=== PATIENT | male | born 1985 | race Caucasian/White ===

== ENCOUNTER 2016-11-29 18:34 | Emergency (ER) | payer SELFPAY ==
[2016-11-29 19:31] LABS: BASOPHIL % 0.3 % (0-2); PLATELET COUNT 196 x10^3mcL (130-400); RED CELL DISTRIBUTION WIDTH 13.2 % (11.5-14.5)
[2016-11-29 19:46] LABS: CALCIUM 9.9 mg/dL (8.5-10.1); CARBON DIOXIDE 31.2 mmol/L (21-32); CHLORIDE SERUM 99 mmol/L (98-107); GFR1 > 60 mL/min; GLUCOSE SERUM 106 mg/dL (74-106); SODIUM SERUM 141 mmol/L (136-145)
[2016-11-29 19:51] LABS: ALBUMIN 4.3 g/dL (3.4-5.0); ALKALINE PHOSPHATASE 65 U/L (46-116); ALT/SGPT 102 U/L (16-63); AST/SGOT 85 U/L (15-37); BILIRUBIN TOTAL 0.82 mg/dL (0.20-1.00); LIPASE 150 IU/L (73-393)
[2016-11-29 21:10] VITALS: BP 164/102
== END 2016-11-29 21:10 | disposition home or self-care (01) ==
LOC: ED 18:34
PROVIDERS: Emergency Medicine
DX: K22.6 Gastro-esophageal laceration-hemorrhage syndrome (principal); K29.20 Alcoholic gastritis without bleeding; R03.0 Elevated blood-pressure reading, without diagnosis of hypertension; F10.20 Alcohol dependence, uncomplicated
CPT/HCPCS: C9113; J2405; J7030; Q0092

== ENCOUNTER 2017-06-26 11:59 | Emergency (ER) | payer SELFPAY ==
[~2017-06-26] VITALS: Ht 185.4 cm; Wt 99.8 kg
[2017-06-26 12:15] VITALS: Ht 185.4 cm; Wt 99.8 kg
[2017-06-26 13:59] LABS: BASOPHIL % 0.5 % (0-2); PLATELET COUNT 163 x10^3mcL (130-400); RED CELL DISTRIBUTION WIDTH 12.7 % (11.5-14.5)
[2017-06-26 14:12] LABS: CALCIUM 9.7 mg/dL (8.5-10.1); CARBON DIOXIDE 25.8 mmol/L (21-32); CHLORIDE SERUM 101 mmol/L (98-107); CREATININE SERUM 0.9 mg/dL (0.7-1.3); GFR1 > 60 mL/min; GLUCOSE SERUM 99 mg/dL (74-106); POTASSIUM SERUM 4.5 mmol/L (3.5-5.1); SODIUM SERUM 137 mmol/L (136-145)
[2017-06-26 14:16] LABS: ALBUMIN 4.6 g/dL (3.4-5.0); ALKALINE PHOSPHATASE 69 U/L (46-116); ALT/SGPT 62 U/L (16-63); AST/SGOT 45 U/L (15-37); BILIRUBIN TOTAL 1.05 mg/dL (0.20-1.00); MAGNESIUM 2.3 mg/dL (1.8-2.4); TOTAL PROTEIN, SERUM 8.1 g/dL (6.4-8.2)
[2017-06-26 17:02] VITALS: BP 152/106
== END 2017-06-26 17:02 | disposition home or self-care (01) ==
LOC: ED 11:59
PROVIDERS: Emergency Medicine
DX: F10.239 Alcohol dependence with withdrawal, unspecified (principal); I10 Essential (primary) hypertension
CPT/HCPCS: 36415; G0480; J3411; J3475; J3490; J7030

== ENCOUNTER 2017-12-27 21:50 | Emergency (ER) | payer MEDICAID ==
[~2017-12-27] VITALS: Ht 185.4 cm; Wt 103.9 kg
[2017-12-27 21:57] VITALS: Ht 185.4 cm; Wt 103.9 kg
[2017-12-27 22:45] LABS: BASOPHIL % 0.3 % (0-2); PLATELET COUNT 182 x10^3mcL (130-400); RED CELL DISTRIBUTION WIDTH 13.5 % (11.5-14.5)
[2017-12-27 22:50] LABS: CALCIUM 9.1 mg/dL (8.5-10.1); CARBON DIOXIDE 24.2 mmol/L (21-32); CHLORIDE SERUM 104 mmol/L (98-107); CREATININE SERUM 0.8 mg/dL (0.7-1.3); GFR1 > 60 mL/min; GLUCOSE SERUM 110 mg/dL (74-106); POTASSIUM SERUM 3.9 mmol/L (3.5-5.1); SODIUM SERUM 140 mmol/L (136-145)
[2017-12-27 23:06] LABS: FREE T4 0.96 ng/dL (0.76-1.46)
[2017-12-27 23:38] LABS: AMPHETAMINE QUAL UR NONE DETECTED (See below)
[2017-12-28 00:01] VITALS: BP 157/103
== END 2017-12-28 00:01 | disposition home or self-care (01) ==
LOC: ED 21:50
PROVIDERS: Emergency Medicine
DX: F41.0 Panic disorder [episodic paroxysmal anxiety] (principal)
CPT/HCPCS: 84439; J2060; J7030; Q0092

== ENCOUNTER 2018-02-21 19:21 | Emergency (ER) | payer SELFPAY ==
[~2018-02-21] VITALS: Ht 185.4 cm; Wt 96.3 kg
[2018-02-21 20:49] LABS: PLATELET COUNT 218 x10^3mcL (130-400); RED CELL DISTRIBUTION WIDTH 12.7 % (11.5-14.5)
[2018-02-21 20:50] LABS: BASOPHIL % 0 % (0-2)
[2018-02-21 21:05] LABS: CALCIUM 9.7 mg/dL (8.5-10.1); CARBON DIOXIDE 24.7 mmol/L (21-32); CHLORIDE SERUM 105 mmol/L (98-107); CREATININE SERUM 1.1 mg/dL (0.7-1.3); GFR1 > 60 mL/min; GLUCOSE SERUM 141 mg/dL (74-106); POTASSIUM SERUM 4.5 mmol/L (3.5-5.1); SODIUM SERUM 144 mmol/L (136-145)
[2018-02-21 21:10] LABS: ALBUMIN 4.2 g/dL (3.4-5.0); ALKALINE PHOSPHATASE 95 U/L (46-116); ALT/SGPT 41 U/L (16-63); AST/SGOT 37 U/L (15-37); BILIRUBIN TOTAL 0.8 mg/dL (0.20-1.00); TOTAL PROTEIN, SERUM 7.5 g/dL (6.4-8.2)
[2018-02-21 23:00] VITALS: BP 139/100
== END 2018-02-21 23:00 | disposition home or self-care (01) ==
LOC: ED 19:21
PROVIDERS: Emergency Medicine
DX: F41.9 Anxiety disorder, unspecified (principal); E86.0 Dehydration; Z98.890 Other specified postprocedural states
CPT/HCPCS: J1885; J2405; J7030; Q0092

== ENCOUNTER 2019-06-10 21:57 | Emergency (ER) | payer SELFPAY ==
[~2019-06-10] VITALS: Ht 180.3 cm; Wt 83.9 kg
[2019-06-10 22:03] VITALS: Ht 180.3 cm; Wt 83.9 kg
[2019-06-10 23:32] LABS: BASOPHIL % 0.2 % (0-2); PLATELET COUNT 234 x10^3mcL (130-400)
[2019-06-10 23:33] LABS: CALCIUM 8.1 mg/dL (8.5-10.1); CARBON DIOXIDE 27.9 mmol/L (21-32); CHLORIDE SERUM 109 mmol/L (98-107); GFR1 > 60 mL/min; GLUCOSE SERUM 170 mg/dL (74-106); POTASSIUM SERUM 3.3 mmol/L (3.5-5.1); SODIUM SERUM 144 mmol/L (136-145)
[2019-06-10 23:39] LABS: ALBUMIN 3.6 g/dL (3.4-5.0); ALKALINE PHOSPHATASE 90 U/L (46-116); ALT/SGPT 37 U/L (16-63); AST/SGOT 32 U/L (15-37); TOTAL PROTEIN, SERUM 6.7 g/dL (6.4-8.2)
[2019-06-11 07:45] VITALS: BP 132/76
[2019-06-11 10:40] LABS: AMPHETAMINE QUAL UR NONE DETECTED (See below)
== END 2019-06-11 13:35 | disposition home or self-care (01) ==
LOC: ED 21:57
PROVIDERS: Emergency Medicine
DX: S51.811A Laceration without foreign body of right forearm, initial encounter (principal); F10.129 Alcohol abuse with intoxication, unspecified; Z98.890 Other specified postprocedural states; X78.1XXA Intentional self-harm by knife, initial encounter; Y93.89 Activity, other specified; Y92.89 Other specified places as the place of occurrence of the external cause; Y99.8 Other external cause status; Y90.8 Blood alcohol level of 240 mg/100 ml or more
CPT/HCPCS: 36415; G0480; J2001; J2060; J7030

== ENCOUNTER 2020-03-26 18:48 | Emergency (ER) | payer OTHER ==
[~2020-03-26] VITALS: Ht 185.4 cm; Wt 90.7 kg
[2020-03-26 19:11] VITALS: Ht 185.4 cm; Wt 90.7 kg
[2020-03-26 21:01] VITALS: BP 144/107
== END 2020-03-26 21:01 ==
LOC: ED 18:48
DX: F41.9 Anxiety disorder, unspecified (principal); Z98.890 Other specified postprocedural states

== ENCOUNTER 2020-03-26 18:48 | Emergency (ER) | payer OTHER | END 2020-03-26 21:01 | LOC: ED 18:48 | DX: Z02.89 Encounter for other administrative examinations (principal) ==